=== PATIENT | male | born 1940 | race Caucasian/White ===

== ENCOUNTER 2016-09-23 14:20 | Emergency (ER) | payer MEDICARE ==
[~2016-09-23] VITALS: Ht 177.8 cm; Wt 122.5 kg
[2016-09-23] MEDS ORDERED: OMEP40CA2 PO (14:45)
[2016-09-23] MEDS ORDERED: PRAV10TA PO (14:45)
[2016-09-23] MEDS ORDERED: FLOM5CAP PO (14:45)
[2016-09-23] MEDS ORDERED: COUM1TAB17 PO (14:45)
[2016-09-23] MEDS ORDERED: BISO10TA PO (14:45)
[2016-09-23 15:37] LABS: INR 1.69
[2016-09-23] MEDS ORDERED: DIGO0.12 PO (15:54)
[2016-09-23 16:02] LABS: CALCIUM LEVEL 8.9 MG/DL (8.8-10.2); CREATININE FOR GFR 1.94 MG/DL (0.70-1.30); DIGOXIN LEVEL 0.9 NG/ML (0.5-2.0); GLOMERULAR FILTRATION RATE 35.9 (>42)
[2016-09-23 16:17] VITALS: BP 115/76
--- NOTE | 2016-09-23 20:05 | ECGEPIP ---
Stationary ECG Study [facility] - ED Test Date: 2016-09-23 Pat Name: FALGUNI PEREA Department: Room: - Gender: M [employer]: keely : 1940 Requested By: Lupe Alexis Order Number: [id number] Reading MD: Lupe Alexis Measurements Intervals [place] Rate: 80 P: TN: 0 QRS: 137 QRSD: 177 T: -26 QT: 427 QTc: 493 Interpretive Statements ELECTRONIC VENTRICULAR PACEMAKER ABNORMAL RHYTHM ECG NO PRIOR FOR COMPARISON Electronically Signed On 09-23-2016 20:05:00 EDT by Lupe Alexis
--- NOTE | 2016-09-24 07:04 | REP ---
Portable chest x-ray: Single view. History: Chest pain. Findings: EKG monitoring electrodes overlie the chest. A bipolar pacemaker is seen in the right heart via the left side. The heart is mildly enlarged unchanged. There appears to be a small zone of discoid atelectasis behind the heart in the left lower lobe. Pulmonary vasculature is not increased. No pneumothorax or hydrothorax is seen. Impression: Pacemaker in place. Mildly prominent heart unchanged. Discoid atelectasis left base. Otherwise no acute disease. Signed by Kong Estrada MD 09/24/2016 08:42 A
== END 2016-09-23 16:35 | disposition home or self-care (01) ==
LOC: M ED 16:09
DX: T82.9XXA Unspecified complication of cardiac and vascular prosthetic device, implant and graft, initial encounter (principal)